=== PATIENT | female | born 2000 | race Caucasian/White ===

== ENCOUNTER 2022-06-04 20:17 | Emergency (ER) | payer OTHER ==
[~2022-06-04] VITALS: Ht 162.6 cm; Wt 49.9 kg
[2022-06-04] MEDS ORDERED: NS 1,000 ML IV ONE (22:20)
[2022-06-04] MEDS ORDERED: METOCLOPRAMIDE INJ 10MG/2ML VIAL IV ONE (22:20)
[2022-06-04 22:52] LABS: BASO % 0.4 % (0.0-1.0); EOS # 0.1 10^3/uL (0.0-0.5); EOS % 1.3 % (0.0-3.0); HEMATOCRIT 42.3 % (36.0-47.0); LYMPH # 2.7 10^3/uL (1.5-5.0); LYMPH % 38.9 % (24.0-44.0); MEAN CORPUSCULAR HEMOGLOBIN 29.6 pg (27.0-33.0); MEAN CORPUSCULAR HGB CONC 33.1 g/dl (32.0-36.5); MEAN CORPUSCULAR VOLUME 89.4 fl (80.0-96.0); MONO # 0.4 10^3/uL (0.0-0.8); MONO % 6.3 % (2.0-8.0); NEUTROPHILS # 3.7 10^3/uL (1.5-8.5); NEUTROPHILS % 52.8 % (36.0-66.0); PLATELET COUNT, AUTOMATED 322 10^3/uL (150-450); RED BLOOD COUNT 4.73 10^6/uL (4.00-5.40)
[2022-06-04 23:19] LABS: CK-MB VALUE MASS < 1.0 NG/ML (<3.6)
[2022-06-04 23:21] LABS: BLOOD UREA NITROGEN 11 MG/DL (9-23); CALCIUM LEVEL 9.3 MG/DL (8.5-10.1); CARBON DIOXIDE LEVEL 26 MMOL/L (20-31); CHLORIDE LEVEL 106 MMOL/L (98-107); CPK CREATINE PHOSPHOKINASE 48 U/L (34-145); CREATININE FOR GFR 0.63 MG/DL (0.55-1.30); GLOMERULAR FILTRATION RATE > 60.0 (>60); GLUCOSE, FASTING 86 MG/DL (60-100); MB/CK RELATIVE INDEX 2.08 (< OR =4); POTASSIUM SERUM 4.1 MMOL/L (3.5-5.1); SODIUM LEVEL 139 MMOL/L (136-145)
[2022-06-05] MEDS ORDERED: IBUP200C33 PO (00:23)
[2022-06-05 00:30] VITALS: BP 121/73
== END 2022-06-05 00:52 | disposition home or self-care (01) ==
LOC: M ED 20:17
DX: R07.89 Other chest pain (principal); R51.9 Headache, unspecified
CPT/HCPCS: 70450; 71045; 80048; 82550; 82553; 84484; 85025; 85379; 93005; 94760; 96374; 96375; 99284; J1100; J2765

== ENCOUNTER 2022-11-03 15:34 | Emergency (ER) | payer OTHER ==
[~2022-11-03] VITALS: Ht 162.6 cm; Wt 58.2 kg
[~2022-11-03 15:34] MED LIST: IBUP200C33 PO
[2022-11-03] MEDS ORDERED: MULTTAB20 PO (16:27)
[2022-11-03] MEDS ORDERED: APAP325T4 PO (16:27)
[2022-11-03 17:30] LABS: BASO % 0.3 % (0.0-1.0); EOS % 0.3 % (0.0-3.0); HEMATOCRIT 36.4 % (36.0-47.0); LYMPH # 2.1 10^3/uL (1.5-5.0); LYMPH % 21.9 % (24.0-44.0); MEAN CORPUSCULAR HEMOGLOBIN 29.2 pg (27.0-33.0); MEAN CORPUSCULAR VOLUME 88.6 fl (80.0-96.0); MONO # 0.6 10^3/uL (0.0-0.8); MONO % 6.6 % (2.0-8.0); NEUTROPHILS # 6.7 10^3/uL (1.5-8.5); NEUTROPHILS % 70.5 % (36.0-66.0); PLATELET COUNT, AUTOMATED 245 10^3/uL (150-450); RED BLOOD COUNT 4.11 10^6/uL (4.00-5.40); WHITE BLOOD COUNT 9.4 10^3/uL (4.0-10.0)
[2022-11-03 17:45] LABS: ERYTHROCYTE SEDIMENTATION RATE 11 mm/hr (0-20)
[2022-11-03 17:49] LABS: BLOOD UREA NITROGEN 6 MG/DL (9-23); CALCIUM LEVEL 9.5 MG/DL (8.5-10.1); CARBON DIOXIDE LEVEL 25 MMOL/L (20-31); CHLORIDE LEVEL 106 MMOL/L (98-107); GLOMERULAR FILTRATION RATE > 60.0 (>60); GLUCOSE, FASTING 79 MG/DL (60-100); MAGNESIUM LEVEL 1.7 MG/DL (1.8-2.4); POTASSIUM SERUM 4.3 MMOL/L (3.5-5.1); SODIUM LEVEL 139 MMOL/L (136-145)
[2022-11-03 17:50] LABS: C REACTIVE PROTEIN QUANTITATIV < 0.40 MG/DL (<1.0)
[2022-11-03 17:53] LABS: THYROID STIMULATING HORMONE 0.611 uIU/ML (0.55-4.78)
[2022-11-03] MEDS ORDERED: diphenhydrAMINE 50MG/ML VIAL IV ONE (19:50)
[2022-11-03] MEDS ORDERED: METOCLOPRAMIDE INJ 10MG/2ML VIAL IV ONE (19:50)
[2022-11-03] MEDS ORDERED: NS 1,000 ML IV ONE (19:50)
[2022-11-03] MEDS ORDERED: LORazepam 2 MG/ML 1ML VIAL IV STA (21:03)
[2022-11-03] MEDS ORDERED: MAGN400T2 PO (21:24)
[2022-11-03] MEDS ORDERED: REGL5TAB2 PO (21:24)
[2022-11-03 21:36] VITALS: BP 122/71; TEMP 97.2; O2SAT 98
== END 2022-11-03 21:33 | disposition left against medical advice (07) ==
LOC: M ED 15:34
DX: O26.892 Other specified pregnancy related conditions, second trimester (principal); R51.9 Headache, unspecified; Z3A.19 19 weeks gestation of pregnancy; Z79.1 Long term (current) use of non-steroidal anti-inflammatories (NSAID); Z79.899 Other long term (current) drug therapy; Z53.9 Procedure and treatment not carried out, unspecified reason
CPT/HCPCS: 80048; 81001; 83735; 84443; 85025; 85652; 86140; 87086; 96361; 96374; 99284; J2765